=== PATIENT | male | born 1935 | race Caucasian/White ===

== ENCOUNTER → 2019-05-12 | Outpatient (CLI) | payer OTHER ==
[~2019-05-12] MED LIST: APAP650 PO; ASA81BEC PO; B-12250 MCG PO; CENTRUM SILVER1 EAC1 PO; CLARITIN10 MG PO; COLACE100 MG; FAMOTIDINE PO; FOLIC ACID 40400 MC1 PO; GLUCOSAMINE &1 EAC1 PO; LASIX 20 MG TAB20 MG PO; LIPITOR40 MG PO; MEDROLDOSEPACK PO; NIASPAN ER 101000 M1 PO; NORCO 5-325 TA1 EACH; PERCOCET 7.5-31 EACH PO; ROBAXIN 750 MG750 M1; SYNTHROID50 MCG PO; TOPROL XL25 MG PO; VITAMIN D1000 UNI1 PO
== END ==
LOC: SJCVC 13:04
DX: I44.0 Atrioventricular block, first degree (principal); R94.31 Abnormal electrocardiogram [ECG] [EKG]; I11.9 Hypertensive heart disease without heart failure; I25.10 Atherosclerotic heart disease of native coronary artery without angina pectoris; I65.23 Occlusion and stenosis of bilateral carotid arteries; E78.2 Mixed hyperlipidemia; E78.5 Hyperlipidemia, unspecified; I70.211 Atherosclerosis of native arteries of extremities with intermittent claudication, right leg; Z79.899 Other long term (current) drug therapy; Z87.891 Personal history of nicotine dependence

== ENCOUNTER → 2019-05-16 | Outpatient (CLI) | payer OTHER | END | disposition home or self-care (01) | LOC: SJCVCIMAG 08:35 | DX: I71.4 Abdominal aortic aneurysm, without rupture (principal); I73.9 Peripheral vascular disease, unspecified ==

== ENCOUNTER → 2019-11-16 | Outpatient (CLI) | payer OTHER | LOC: SJCVC 12:56 | PROVIDERS: ATTEND Internal Medicine | DX: R94.31 Abnormal electrocardiogram [ECG] [EKG] (principal); I44.0 Atrioventricular block, first degree; I11.9 Hypertensive heart disease without heart failure; I25.10 Atherosclerotic heart disease of native coronary artery without angina pectoris; I65.23 Occlusion and stenosis of bilateral carotid arteries; E78.5 Hyperlipidemia, unspecified; I71.4 Abdominal aortic aneurysm, without rupture; Z79.899 Other long term (current) drug therapy; Z87.891 Personal history of nicotine dependence ==

== ENCOUNTER → 2020-05-23 | Outpatient (CLI) | payer OTHER | LOC: SJCVC 13:09 | PROVIDERS: ATTEND Internal Medicine | DX: R94.31 Abnormal electrocardiogram [ECG] [EKG] (principal); I44.0 Atrioventricular block, first degree; I11.9 Hypertensive heart disease without heart failure; I25.10 Atherosclerotic heart disease of native coronary artery without angina pectoris; I65.23 Occlusion and stenosis of bilateral carotid arteries; E78.5 Hyperlipidemia, unspecified; I71.4 Abdominal aortic aneurysm, without rupture; Z87.891 Personal history of nicotine dependence; Z79.899 Other long term (current) drug therapy; Z79.82 Long term (current) use of aspirin; Z88.8 Allergy status to other drugs, medicaments and biological substances ==

== ENCOUNTER → 2020-11-20 | Outpatient (CLI) | payer OTHER | LOC: SJCVCIMAG 08:20 | PROVIDERS: ATTEND Internal Medicine | DX: I71.4 Abdominal aortic aneurysm, without rupture (principal); I35.8 Other nonrheumatic aortic valve disorders; R94.31 Abnormal electrocardiogram [ECG] [EKG]; I11.9 Hypertensive heart disease without heart failure; I44.0 Atrioventricular block, first degree; I25.10 Atherosclerotic heart disease of native coronary artery without angina pectoris; I65.23 Occlusion and stenosis of bilateral carotid arteries; E78.5 Hyperlipidemia, unspecified; Z98.61 Coronary angioplasty status; Z88.8 Allergy status to other drugs, medicaments and biological substances; Z79.82 Long term (current) use of aspirin; Z79.899 Other long term (current) drug therapy; Z87.891 Personal history of nicotine dependence ==

== ENCOUNTER → 2021-05-23 | Outpatient (CLI) | payer OTHER | LOC: SJCVC 13:15 | PROVIDERS: ATTEND Internal Medicine | DX: R94.31 Abnormal electrocardiogram [ECG] [EKG] (principal); I44.0 Atrioventricular block, first degree; I25.10 Atherosclerotic heart disease of native coronary artery without angina pectoris; I65.23 Occlusion and stenosis of bilateral carotid arteries; I10 Essential (primary) hypertension; E78.5 Hyperlipidemia, unspecified; I71.4 Abdominal aortic aneurysm, without rupture; Z87.891 Personal history of nicotine dependence; Z88.8 Allergy status to other drugs, medicaments and biological substances; Z79.899 Other long term (current) drug therapy ==